=== PATIENT | male | born 1935 | race Caucasian/White ===

== ENCOUNTER 2020-03-14 11:48 | Observation (INO) | payer MEDICARE, OTHER ==
[2020-03-14 13:11] LABS: Albumin 2.4 g/dL (3.5-5.0); Calcium 6.8 mg/dL (8.4-10.2); Magnesium 1.6 mg/dL (1.6-2.3); Potassium 3.9 mmol/L (3.5-5.1); Total Bilirubin 1.4 mg/dL (0.2-1.3); Total Protein 4.4 g/dL (6.3-8.2)
[2020-03-14 13:13] LABS: Basophils % (A) 0 %; Eosinophils # (A) 0.1 k/uL (0-0.7); Eosinophils % (A) 1 %; HCT 43.7 % (39.0-53.0); Lymphocytes # (A) 0.7 k/uL (1.0-4.8); Lymphocytes % (A) 6 %; MCH 30.6 pg (25.0-35.0); MCV 95.5 fL (80.0-100.0); Mean Platelet Volume 9.1; Monocytes # (A) 0.8 k/uL (0-1.0); Monocytes % (A) 7 %; Neutrophils # (A) 9.5 k/uL (1.3-7.7); Neutrophils % (A) 84 %; Platelet Count 116 k/uL (150-450); RBC 4.58 m/uL (4.30-5.90); RDW 13.5 % (11.5-15.5); WBC 11.3 k/uL (3.8-10.6)
--- NOTE | 2020-03-14 13:19 | XR ---
Right hip HISTORY: Trauma and pain 2 views of the right hip Bone mineralization, joint spaces and alignment are maintained. IMPRESSION: No fracture or dislocation.
[2020-03-14 13:21] LABS: INR 1.1 (<1.2); Prothrombin Time 10.9 sec (9.0-12.0)
--- NOTE | 2020-03-14 13:21 | XR ---
EXAMINATION TYPE: XR chest 2V DATE OF EXAM: 03/14/2020 COMPARISON: NONE HISTORY: Syncope TECHNIQUE: Frontal and lateral views of the chest are obtained. FINDINGS: Aorta is dense. Compression deformities are noted within the thoracic spine at T9 and T12, loss of height of approximately 50%. There is no focal air space opacity, pleural effusion, or pneumo thorax seen. The cardiac silhouette size is within normal limits. There are overlying cardiac leads. IMPRESSION: No acute cardiopulmonary process. Probable osteoporotic compression fractures of indeter minate age.
[2020-03-14 13:26] LABS: Partial Thromboplastin Time 19.4 sec (22.0-30.0)
--- NOTE | 2020-03-14 13:27 | CT ---
EXAMINATION TYPE: CT brain wo con DATE OF EXAM: 03/14/2020 COMPARISON: None HISTORY: Fall injury, syncope CT DLP: 1157.4 mGycm Automated exposure control for dose reduction was used. Head CT performed using departmental protocol FINDINGS: There is cortical atrophy. Periventricular white matter shows patchy low attenuation. There is no hem orrhage or hydrocephalus. Calvarium is intact. Paranasal sinuses and mastoid air cells are unremarkab le. 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
--- NOTE | 2020-03-14 13:28 | ED ---
General Adult HPI - General Chief complaint: Syncope Stated complaint: fall Time Seen by Provider: 03/14/20 11:54 Source: patient Mode of arrival: EMS Limitations: no limitations - History of Present Illness Initial comments: Patient is an 84-year-old male, history of hyperlipidemia, presenting to the emergency department via EMS after 2 syncopal episodes today. Patient states that last night at approximately 10:30 PM he had a trip and fall where he landed mostly on his right hip. Patient states he did not hit his head and had no loss of consciousness. Patient states he was able to walk back into the house. He states he has been having some continued swelling and pain of his right lateral hip area but has been able to ambulate. Patient states when he woke up this morning he sat up on the edge of his bed and then had a syncopal episode. P atient states his found him and he was very diaphoretic. They were able to get him upand seated into a chair. Patient states that little while later he felt nauseous. He told his told his he did not want anything to eat and then the next thing he remembered he had another syncopal episode. His states that today her daughter was at the house and is a nurse and stated she felt he was not breathing and did not have a puslse, so she began CPR which lasted about 20 seconds. Patient then opened up his eyes and was breathing. Patient states he has never had episodes like this before. He denies any chest pain, shortness of breath, abdominal pain. He denies having a headache, blurry vision, dizziness. He denies any pain in his lower extremities except for the right hip. He denies any history of any heart or surgeries. He denies any recent changes in medications. He has no further complaints at this time. Upon arrival to the ER, his vital signs are stable. - Related Data Allergies Allergy/AdvReac Type Severity Reaction Status Date / Time No Known Allergies Allergy Verified 03/14/20 15:01 Review of Systems ROS Statement: Those systems with pertinent positive or pertinent negative responses have been documented in the HPI. ROS Other: All systems not noted in ROS Statement are negative. Past Medical History Past Medical History: Chest Pain / Angina History of Any Multi-Drug Resistant Organisms: None Reported Past Surgical History: No Surgical Hx Reported Smoking Status: Never smoker Past Alcohol Use History: None Reported Past Drug Use History: None Reported General Exam - General Exam Comments Initial Comments: GENERAL: Well-appearing, well-nourished and in no acute distress. HEAD: Atraumatic, normocephalic. EYES: Pupils equal round and reactive to light, extraocular movements intact, sclera anicteric, conjunctiva are normal. ENT: TMs normal, nares patent, oropharynx clear without exudates. Moist mucous membranes. NECK: Normal range of motion, supple without lymphadenopathy or JVD. LUNGS: Breath sounds clear to auscultation bilaterally and equal. No wheezes rales or rhonchi. HEART: Regular rate and rhythm without murmurs, rubs or gallops. ABDOMEN: Soft, nontender, normoactive bowel sounds. No guarding, no rebound. No masses appreciated. : Deferred EXTREMITIES: Patient has some soft tissue swelling of the right hip, lateral aspect. There is no bruising at this time. This area does appear to be tender. He does have full range of motion of his bilateral lower legs. He is neurovascular intact. No pitting or edema. No clubbing or cyanosis. NEUROLOGICAL: Cranial nerves II through XII grossly intact. Normal speech, normal gait. PSYCH: Normal mood, normal affect. SKIN: Warm, Dry, normal turgor, no rashes or lesions noted. Limitations: no limitations Course Vital Signs 03/14/20 03/14/20 12:02 14:00 Temperature 98.0 F Pulse Rate 86 88 Respiratory 16 16 Rate Blood Pressure 154/86 114/78 O2 Sat by Pulse 99 98 Oximetry EKG Findings - EKG Comments: EKG Findings:: EKG shows sinus bradycardia, RBBB, no signs of acute ischemia. Ventricular rate 53, MI interval 162, QTC 462. No previous EKG to compare. Medical Decision Making - Medical Decision Making Patient is an 84-year-old male presenting via EMS after having 2 syncopal episodes today. He did have a trip and fall yesterday and had right hip pain. 2 syncopal events happened today. Patient denies history of heart disease. His vital signs upon arrival are normal. His EKG shows no acute findings. Labs reveal slight leukocytosis of 11.3, CO2 is 18, kidney function is normal, sugar is 112. Troponin is normal. Urine shows no evidence of infection. X-ray of the right hip shows no evidence of fracture or dislocation. Chest x-ray reveals no acute process. Brain CT also reveals no acute process. Patient has been stable the ER. Given patient's history of syncopal events today, patient will be admitted with cardiac consult. I did discuss case with Dr. Byrd who is in agreement with this plan of care. Patient was accepted by Dr. Navarro with cardiac consult. She is agreement with this care. - Lab Data Result diagrams: 03/14/20 12:00 03/14/20 12:00 Lab Results 03/14/20 03/14/20 03/14/20 Range/Units 12:00 12:00 12:00 WBC 11.3 H (3.8-10.6) k/uL RBC 4.58 (4.30-5.90) m/uL Hgb 14.0 (13.0-17.5) gm/dL Hct 43.7 (39.0-53.0) % MCV 95.5 (80.0-100.0) fL MCH 30.6 (25.0-35.0) pg MCHC 32.0 (31.0-37.0) g/dL RDW 13.5 (11.5-15.5) % Plt Count 116 L (150-450) k/uL Neutrophils % 84 % Lymphocytes % 6 % Monocytes % 7 % Eosinophils % 1 % Basophils % 0 % Neutrophils # 9.5 H (1.3-7.7) k/uL Lymphocytes # 0.7 L (1.0-4.8) k/uL Monocytes # 0.8 (0-1.0) k/uL Eosinophils # 0.1 (0-0.7) k/uL Basophils # 0.0 (0-0.2) k/uL PT 10.9 (9.0-12.0) sec INR 1.1 (<1.2) APTT 19.4 L (22.0-30.0) sec Sodium 137 (137-145) mmol/L Potassium 3.9 (3.5-5.1) mmol/L Chloride 114 H (98-107) mmol/L Carbon Dioxide 18 L (22-30) mmol/L Anion Gap 5 mmol/L BUN 25 H (9-20) mg/dL Creatinine 1.01 (0.66-1.25) mg/dL Est GFR (CKD-EPI)AfAm 78 (>60 ml/min/1.73 sqM) Est GFR (CKD-EPI)NonAf 67 (>60 ml/min/1.73 sqM) Glucose 112 H (74-99) mg/dL Calcium 6.8 L (8.4-10.2) mg/dL Magnesium 1.6 (1.6-2.3) mg/dL Total Bilirubin 1.4 H (0.2-1.3) mg/dL AST 19 (17-59) U/L ALT 9 (4-49) U/L Alkaline Phosphatase 44 (38-126) U/L Troponin I (0.000-0.034) ng/mL Total Protein 4.4 L (6.3-8.2) g/dL Albumin 2.4 L (3.5-5.0) g/dL Urine Color Urine Appearance (Clear) Urine pH (5.0-8.0) Ur Specific [place] (1.001-1.035) Urine Protein (Negative) Urine Glucose (UA) (Negative) Urine Ketones (Negative) Urine Blood (Negative) Urine Nitrite (Negative) Urine Bilirubin (Negative) Urine Urobilinogen (<2.0) mg/dL Ur Leukocyte Esterase (Negative) Urine RBC (0-5) /hpf Urine WBC (0-5) /hpf Hyaline Casts (0-2) /lpf Urine Mucus (None) /hpf 03/14/20 03/14/20 Range/Units 12:00 13:56 WBC (3.8-10.6) k/uL RBC (4.30-5.90) m/uL Hgb (13.0-17.5) gm/dL Hct (39.0-53.0) % MCV (80.0-100.0) fL MCH (25.0-35.0) pg MCHC (31.0-37.0) g/dL RDW (11.5-15.5) % Plt Count (150-450) k/uL Neutrophils % % Lymphocytes % % Monocytes % % Eosinophils % % Basophils % % Neutrophils # (1.3-7.7) k/uL Lymphocytes # (1.0-4.8) k/uL Monocytes # (0-1.0) k/uL Eosinophils # (0-0.7) k/uL Basophils # (0-0.2) k/uL PT (9.0-12.0) sec INR (<1.2) APTT (22.0-30.0) sec Sodium (137-145) mmol/L Potassium (3.5-5.1) mmol/L Chloride (98-107) mmol/L Carbon Dioxide (22-30) mmol/L Anion Gap mmol/L BUN (9-20) mg/dL Creatinine (0.66-1.25) mg/dL Est GFR (CKD-EPI)AfAm (>60 ml/min/1.73 sqM) Est GFR (CKD-EPI)NonAf (>60 ml/min/1.73 sqM) Glucose (74-99) mg/dL Calcium (8.4-10.2) mg/dL Magnesium (1.6-2.3) mg/dL Total Bilirubin (0.2-1.3) mg/dL AST (17-59) U/L ALT (4-49) U/L Alkaline Phosphatase (38-126) U/L Troponin I <0.012 (0.000-0.034) ng/mL Total Protein (6.3-8.2) g/dL Albumin (3.5-5.0) g/dL Urine Color Yellow Urine Appearance Clear (Clear) Urine pH 5.5 (5.0-8.0) Ur Specific [place] 1.019 (1.001-1.035) Urine Protein Trace H (Negative) Urine Glucose (UA) Negative (Negative) Urine Ketones Negative (Negative) Urine Blood Negative (Negative) Urine Nitrite Negative (Negative) Urine Bilirubin Negative (Negative) Urine Urobilinogen <2.0 (<2.0) mg/dL Ur Leukocyte Esterase Moderate H (Negative) Urine RBC 1 (0-5) /hpf Urine WBC 2 (0-5) /hpf Hyaline Casts 1 (0-2) /lpf Urine Mucus Few H (None) /hpf Disposition Clinical Impression: Syncope and collapse Disposition: ADMITTED IP TO THIS [facility] Condition: Stable Is patient prescribed a controlled substance at d/c from ED?: No Referrals: Nonstaff,Physician [Primary Care Provider] - 1-2 days Decision Date: 03/14/20 Decision Time: 15:00
[2020-03-14 14:23] LABS: Appearance,Urine Clear (Clear); Bilirubin,Urine Negative (Negative); Blood,Urine Negative (Negative); Color,Urine Yellow; Glucose,Urine (UA) Negative (Negative); Hyaline Casts,Urine 1 /lpf (0-2); Ketones,Urine Negative (Negative); Leukocyte Esterase,Urine Moderate (Negative); Mucus,Urine Few /hpf; Nitrite,Urine Negative (Negative); PH, Urine 5.5 (5.0-8.0); Protein,Urine Trace (Negative); RBC,Urine 1 /hpf (0-5); Specific Gravity,Urine 1.019 (1.001-1.035); Urobilinogen,Urine <2.0 mg/dL (<2.0); WBC,Urine 2 /hpf (0-5)
[2020-03-14] MEDS ORDERED: NITROGLYCERIN SL TABS 0.4 MG TAB SUBLINGUAL PRN (14:51)
[2020-03-14] MEDS ORDERED: SODIUM CHLORIDE 0.9% 1,000 ML IV SCH (19:45)
--- NOTE | 2020-03-14 19:49 | P.HPIM ---
History of Present Illness H&P Date: 03/14/20 Chief Complaint: Syncope Patient is a 84-year-old male with a known history of hyperlipidemia presents to ER with complaints of syncopal episode today. Patient states that last night around 10:30 PM patient had a fall and landed on his right buttock since then patient has been having right lower extremity pain. Patient states that he did not hit his head or denied loss of consciousness. Patient was able to ambulate at home after that and went back to sleep. Today morning around 8 AM she got up and tried to walk and fell again twice. He sat at the edge of his bed and then had a syncopal episode. Patient did not lost his consciousness as per his family. Patient was very nauseated and had episode of vomiting. Patient was also diaphoretic. Patient otherwise denied any complaints of dizziness or lightheadedness.. Ice pack was placed on the right buttock area. Ambulance was called. Patient was able to get himself up and seated in the chair. Patient's daughter was at home who is a RN and felt that he did not have a pulse and started CPR for about 15 to 20 seconds. Patient then opened his eyes and started breathing. Patient denies any weakness. No bladder or bowel incontinence. No postictal after syncopal episode. Otherwise patient denied any complaints of chest pain or shortness of breath. Known diarrhea. No recent illnesses. No cough or sputum production. No fever no chills. No prior history of heart disease. Upon arrival to the ER blood pressure was 154/86 pulse is 86 respirations 16 and pulse ox 99% on room air. Afebrile. Hip x-ray showed no acute fracture or dislocation. Chest x-ray no acute cardiopulmonary process. Probable osteoporotic compression fracture of indeterminate age. Compression deformities are noted within the thoracic spine at T9 and T12 CT head showed age-related atrophy and chronic small vessel ischemic changes. EKG showed sinus bradycardia with heart rate 53. Laboratory data showed WBC 11.3, hemoglobin 14.0 and platelets 116 Sodium 137, potassium 3.9, BUN 25 and creatinine 1.01 Calcium 6.8 Magnesium 1.6 Total bilirubin 1.4 Troponin x3- Urinalysis is negative for infection. Review of Systems Constitutional: Patient denies any fever or chills . generalized weakness noweight loss. Abdomen: Patient denied nausea vomiting and diarrhea and abdominal pain. Cardiovascular: Patient denies any chest pain or short of breath no palpitation s. Respiratory: patient denied any cough is from production. No shortness of breath Neurologic: Patient denied any numbness or tingling headache. Musculoskeletal: Patient denies any complaints of joint swelling or deformity. Skin: Negative Psychiatric: Negative Endocrine: No heat or cold intolerance. No recent weight gain. Genitourinary: No dysuria or hematuria. All other 14 point ROS negative except the above Past Medical History Past Medical History: Chest Pain / Angina, Hearing Disorder / Deafness History of Any Multi-Drug Resistant Organisms: MRSA Date of last positivie culture/infection: 2014 MDRO Source:: arm, ear Past Surgical History: Hernia Repair, Tonsillectomy Past Anesthesia/Blood Transfusion Reactions: No Reported Reaction Past Psychological History: No Psychological Hx Reported Smoking Status: Never smoker Past Alcohol Use History: None Reported Past Drug Use History: None Reported - Past Family History Mother Family Medical History: Hyperlipidemia Father Additional Family Medical History / Comment(s): unknown heart disease Medications and Allergies Home Medications Medication Instructions Recorded Confirmed Type Alendronate Sodium 70 mg PO SA 03/14/20 03/14/20 History Aspirin [Adult Low Dose Aspirin EC] 81 mg PO DAILY 03/14/20 03/14/20 History Calcium Carbonate [Calcium] 600 mg PO DAILY 03/14/20 03/14/20 History Cyanocobalamin (Vitamin B-12) 1,000 mcg PO DAILY 03/14/20 03/14/20 History [Vitamin B-12] Donepezil [Aricept] 5 mg PO HS 03/14/20 03/14/20 History Glucosam/Estuardo-Msm1/C/Seymour/Bosw 1 tab PO DAILY 03/14/20 03/14/20 History [Glucosamine-Chondroitin Tablet] Multivitamins, Thera [Multivitamin 1 tab PO DAILY 03/14/20 03/14/20 History (formulary)] Omeprazole 20 mg PO DAILY 03/14/20 03/14/20 History Simvastatin [Zocor] 40 mg PO HS 03/14/20 03/14/20 History Allergies Allergy/AdvReac Type Severity Reaction Status Date / Time No Known Allergies Allergy Verified 03/14/20 15:54 Physical Exam Vitals: Vital Signs Temp Pulse Resp BP Pulse Ox 03/14/20 14:00 88 16 114/78 98 03/14/20 12:02 98.0 F 86 16 154/86 99 Intake and Output 03/14/20 03/14/20 03/14/20 06:59 14:59 22:59 Other: Weight 96.162 kg 96.162 kg PHYSICAL EXAMINATION: Patient is lying in the bed comfortably, no acute distress, awake alert and oriented.. HEENT: Normocephalic. Neck is supple. Pupils reactive. Nostrils clear. Oral cavity is moist. Ears reveal no drainage. Neck reveals no JVD, carotid bruits, or thyromegaly. CHEST EXAMINATION: Trachea is central. Symmetrical expansion. Lung eubanks clear to auscultation and percussion. CARDIAC: Normal S1, S2 with no gallops. Systolic murmur. ABDOMEN: Soft. Bowel sounds normal. No organomegaly. No abdominal bruits. Extremities: reveal no edema. No clubbing or cyanosis Neurologically awake, alert, oriented x3 with well-coordinated movements. No focal deficits noted Skin: No rash or skin lesions. Psychiatric: Coperative. Nonsuicidal Musculoskeletal: No joint swelling or deformity. Normal range of motion. Right buttock swelling in the upper quadrant, tenderness. No bruising noted. Results CBC & Chem 7: 03/14/20 12:00 03/14/20 12:00 Labs: Abnormal Lab Results - Last 24 Hours (Table) 03/14/20 03/14/20 03/14/20 Range/Units 12:00 12:00 12:00 WBC 11.3 H (3.8-10.6) k/uL Plt Count 116 L (150-450) k/uL Neutrophils # 9.5 H (1.3-7.7) k/uL Lymphocytes # 0.7 L (1.0-4.8) k/uL APTT 19.4 L (22.0-30.0) sec Chloride 114 H (98-107) mmol/L Carbon Dioxide 18 L (22-30) mmol/L BUN 25 H (9-20) mg/dL Glucose 112 H (74-99) mg/dL Calcium 6.8 L (8.4-10.2) mg/dL Total Bilirubin 1.4 H (0.2-1.3) mg/dL Total Protein 4.4 L (6.3-8.2) g/dL Albumin 2.4 L (3.5-5.0) g/dL Urine Protein (Negative) Ur Leukocyte Esterase (Negative) Urine Mucus (None) /hpf 03/14/20 Range/Units 13:56 WBC (3.8-10.6) k/uL Plt Count (150-450) k/uL Neutrophils # (1.3-7.7) k/uL Lymphocytes # (1.0-4.8) k/uL APTT (22.0-30.0) sec Chloride (98-107) mmol/L Carbon Dioxide (22-30) mmol/L BUN (9-20) mg/dL Glucose (74-99) mg/dL Calcium (8.4-10.2) mg/dL Total Bilirubin (0.2-1.3) mg/dL Total Protein (6.3-8.2) g/dL Albumin (3.5-5.0) g/dL Urine Protein Trace H (Negative) Ur Leukocyte Esterase Moderate H (Negative) Urine Mucus Few H (None) /hpf Thrombosis Risk Factor Assmnt - DVT/VTE Prophylaxis DVT/VTE Prophylaxis: Pharmacologic Prophylaxis ordered - Choose All That Apply Any of the Below Risk Factors Present?: No Other Risk Factors: Yes Each Risk Factor Represents 3 Points: Age 75 years or older Other congenital or acquired thrombophilia - If yes, enter type in comment: No Thrombosis Risk Factor Assessment Total Risk Factor Score: 3 Thrombosis Risk Factor Assessment Level: Moderate Risk Assessment and Plan Assessment: Acute syncopal episode. Ruled out acute CVA. Rule out cardiac arrhythmia /valvular abnormalities. Hypomagnesemia Mild cognitive impairment Hearing disorder/deafness Status post fall and right buttock pain with swelling possible hematoma. DVT prophylaxis with heparin subcu Obesity with BMI 32.2 Plan: Patient will be continued on telemetry monitoring. Troponin x3-. Continue with gentle hydration and replace magnesium. Continue with warm compresses.. Monitor electrolytes. Cardiology was consulted. Further recommendations based on the clinical course. Time with Patient: Greater than 30
[2020-03-14] MEDS: MAGNESIUM SULFATE-D5W PMX 1 GM in DEXTROSE/WATER 1 100ML.BAG IVPB SCH ×2 (20:43→22:27)
[2020-03-14] MEDS ORDERED: ATORVASTATIN 20 MG TAB PO SCH (21:00)
[2020-03-14] MEDS ORDERED: DONEPEZIL 5 MG TAB PO SCH (21:00)
[2020-03-15] MEDS: HEPARIN SODIUM,PORCINE 5,000 UNIT/ML 1 ML VIAL SQ SCH ×2 (00:02→09:56)
[2020-03-15 04:05] VITALS: RESP 16
[2020-03-15 07:53] LABS: Cholesterol 109 mg/dL (<200); HDL Cholesterol 39 mg/dL (40-60); LDL Cholesterol,Calculated 50 mg/dL (0-99); Triglycerides 100 mg/dL (<150)
[2020-03-15 07:54] VITALS: TEMP 97.6
[2020-03-15 08:03] VITALS: BP 118/70; PULSE 86
[2020-03-15] MEDS ORDERED: NON FORMULARY DRUG (Aspirin [Adult Low Dose Aspirin Ec] 81 MG) PO SCH (09:00)
[2020-03-15] MEDS ORDERED: NON FORMULARY DRUG (Glucosam/Chon-Msm1/C/Mang/Bosw [Glucosamine-Chondroitin Tablet] 1 TAB) PO SCH (09:00)
[2020-03-15] MEDS ORDERED: CYANOCOBALAMIN 500 MCG TAB PO SCH (09:00)
[2020-03-15] MEDS ORDERED: MULTIVITAMINS, THERA 1 EACH TAB PO SCH (09:00)
[2020-03-15] MEDS ORDERED: ASPIRIN 325 MG TAB PO SCH (09:00)
[2020-03-15] MEDS ORDERED: PANTOPRAZOLE 40 MG TABLET PO SCH (09:00)
--- NOTE | 2020-03-15 09:22 | ECHOF ---
Referral Reason:Syncope 2 MEASUREMENTS -------- HEIGHT: 172.7 cm WEIGHT: 96.2 kg BP: 114/78 RVIDd: 3.5 cm (< 3.3) IVSd: 1.1 cm (0.6 - 1.1) LVIDd: 3.8 cm (3.9 - 5.3) LVPWd: 1.0 cm (0.6 - 1.1) IVSs: 1.6 cm LVIDs: 2.7 cm LVPWs: 1.5 cm LA Diam: 3.0 cm (2.7 - 3.8) Ao Diam: 3.8 cm (2.0 - 3.7) AV Cusp: 2.0 cm (1.5 - 2.6) MV EXCURSION: 10.629 mm (> 18.000) MV EF SLOPE: 11 mm/s (70 - 150) EPSS: 0.7 cm MV E Sherman: 0.70 m/s MV DecT: 374 ms MV A Sherman: 1.12 m/s MV E/A Ratio: 0.62 AR PHT: 1195 ms RAP: 5.00 mmHg RVSP: 36.04 mmHg FINDINGS -------- Sinus rhythm. This was a technically adequate study. The left ventricular size is normal. There is borderline concentric left ventricular hypertrophy. Overall left ventricular systolic function is normal with, an EF between 55 - 60 %. The right ventricle is mildly enlarged. The left atrial size is normal. The right atrial size is normal. Interatrial and interventricular septum intact. There is mild aortic valve sclerosis. There is mild aortic regurgitation. Moderate mitral annular calcification present. There is trace mitral regurgitation. Mild tricuspid regurgitation present. There is mild pulmonary hypertension. The right ventricular systolic pressure, as measured by Doppler, is 36.04mmHg. Trace/mild (physiologic) pulmonic regurgitation. The aortic root is dilated measuring 3.8cm. IVC Not well visulized. There is no pericardial effusion. CONCLUSIONS -------- 1. There is borderline concentric left ventricular hypertrophy. 2. Overall left ventricular systolic function is normal with, an EF between 55 - 60 %. 3. The right ventricle is mildly enlarged. 4. The left atrial size is normal. 5. There is mild aortic valve sclerosis. 6. There is mild aortic regurgitation. 7. Moderate mitral annular calcification present. 8. There is trace mitral regurgitation. 9. Mild tricuspid regurgitation present. 10. There is mild pulmonary hypertension. 11. Trace/mild (physiologic) pulmonic regurgitation. 12. The aortic root is dilated measuring 3.8cm. 13. There is no pericardial effusion. CELL ROOM OPERATOR: Marlena Giles RDCS
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
== END 2020-03-15 12:35 | disposition home or self-care (01) ==
LOC: EC 11:48 → 3NCARDOBS 14:52
PROVIDERS: ADMIT Internal Medicine; ATTEND Internal Medicine
DX: R55 Syncope and collapse (principal); M25.551 Pain in right hip; M79.661 Pain in right lower leg; W01.0XXA Fall on same level from slipping, tripping and stumbling without subsequent striking against object, initial encounter; D72.829 Elevated white blood cell count, unspecified; E83.42 Hypomagnesemia; I45.10 Unspecified right bundle-branch block; R00.1 Bradycardia, unspecified; E78.5 Hyperlipidemia, unspecified; G31.1 Senile degeneration of brain, not elsewhere classified; I67.89 Other cerebrovascular disease; H91.90 Unspecified hearing loss, unspecified ear; G31.84 Mild cognitive impairment of uncertain or unknown etiology; E66.9 Obesity, unspecified; Z68.32 Body mass index [BMI] 32.0-32.9, adult; Z86.14 Personal history of Methicillin resistant Staphylococcus aureus infection; Z83.438 Family history of other disorder of lipoprotein metabolism and other lipidemia; Z82.49 Family history of ischemic heart disease and other diseases of the circulatory system; Z79.02 Long term (current) use of antithrombotics/antiplatelets; Z79.82 Long term (current) use of aspirin; Z79.899 Other long term (current) drug therapy
CPT/HCPCS: 93005 ×2; 96365; 96366; 96372; 99285; 36415; 93306; 85379; 80061; 80053; 83735; 84484; 85025; 85610; 85730; 81001; 73502; 71046; 70450; G0378 ×2; U0003; J1644; J3475